=== PATIENT | female | born 1995 | race Two or more races ===

== ENCOUNTER 2019-01-03 10:53 | Inpatient (IN) ==
[2019-01-03 12:15] LABS: Baso % (Auto) 0.2 % (0.0-2.0); Eos % (Auto) 0.5 % (0.0-4.0); Hematocrit 37.6 % (35.0-46.0); Hemoglobin 12.7 gm/dL (11.6-15.3); Lymph # (Auto) 1.7 th/mm3 (1.0-4.8); Lymph % (Auto) 15.8 % (9.0-44.0); Mean Corpuscular HGB Conc 33.9 % (32.0-36.0); Mean Corpuscular Hemoglobin 30.1 pg (27.0-34.0); Mean Corpuscular Volume 88.9 fL (80.0-100.0); Mean Platelet Volume 8.5 fL (7.0-11.0); Mono # (Auto) 0.6 th/mm3 (0.0-0.9); Mono % (Auto) 6.2 % (0.0-8.0); Neut # (Auto) 8.1 th/mm3 (1.8-7.7); Neut % (Auto) 77.3 % (16.0-70.0); Platelet Count 138 th/mm3 (150-450); Red Blood Count 4.23 mil/mm3 (4.00-5.30); Red Cell Distribution Width 13.7 % (11.6-17.2); White Blood Count 10.5 th/mm3 (4.0-11.0)
[2019-01-03 12:34] LABS: Bacteria,Urine Occasional /hpf; Bilirubin,Urine Negative (Negative); Clarity,Urine Hazy (Clear); Color,Urine Yellow (Yellw/Straw); Glucose,Urine (UA) Negative (Negative); Leukocyte Esterase,Urine Trace (Negative); Mucus,Urine Few /lpf (Occasional); Nitrite,Urine Negative (Negative); Specific Gravity,Urine 1.016 (1.002-1.035); Squamous Epithelial Cell,Urine 1 /hpf (0-5)
[2019-01-03] MEDS ORDERED: Citric Acid/Sodium Citrate Liq 30 ML UDC PO SCH ×2 (14:00→14:15)
[2019-01-03] MEDS ORDERED: Sodium Chlor 0.9% Inj 500 ML IV.SIG PRN ×2 (14:00→14:01)
[2019-01-03] MEDS ORDERED: Naloxone Inj 0.4 MG/ML Vial IV.PUSH PRN ×3 (14:00→17:42)
[2019-01-03] MEDS ORDERED: Oxytocin 30 Units/500ml Premix 30 UNITS/500 ML BAG IV.SIG ONE ×2 (14:00→14:30)
[2019-01-03] MEDS ORDERED: fentaNYL Citrate Inj 100 MCG/2 ML Ampul IV.PUSH PRN ×4 (14:00→14:01)
[2019-01-03] MEDS ORDERED: Sod Chloride 0.9% Inj 1,000 ML IV.CONT PRN ×2 (14:00→14:01)
--- NOTE | 2019-01-03 14:00 | P.OBLABOR ---
Subjective Interval history: 23 yo shf P0 at 39 1/7 seen in office this am and 5 cm. Incarcerated at the halfway awaiting disposition. PNC with dc and halfway [employer] TECH[employer]IAN thrombocytopenia noted -- mild (epidural not contraindicated) Strip category one 5/75%/posterior EWF 7 pounds pelvis unproven but clinically adequate Objective Vital Signs: Vital Signs - 8 hr 01/03/19 11:30 01/03/19 13:00 Temperature 98.4 F 98.3 F Pulse Rate 94 H 82 Respiratory Rate 20 16 Blood Pressure 103/62 104/54 L Objective: Pelvic Exam: Cervix: [-] Dilatation: [-] Effacement: [-] Station: [-] Presentation: [-] Membranes: [intact or ruptured] Uterine Contractions: [-] FHT's: Category: [-] Baseline: [-] Reactive: [-] Variability: [-] Decels: [-] Assessment and Plan - Diagnosis (1) 39 weeks gestation of Code(s): Z3A.39 - 39 weeks gestation of Status: Acute (2) Active labor at term Status: Acute - Plan augment as indicated epidural prn anticipate
[2019-01-03] MEDS ORDERED: Oxytocin 30 Units/500ml Premix 30 UNITS/500 ML BAG IV.SIG PRN (14:02)
[2019-01-03] MEDS ORDERED: fentaNYL 2MCG-Bupiv 0.125% Epi 150 ML EPIDURAL ONE (14:19)
[2019-01-03] MEDS ORDERED: Lidocaine 2%/Epinephrine 1:200,000 PF 10 ML SDV ONE (14:19)
[2019-01-03] MEDS ORDERED: fentaNYL 2MCG-Bupiv 0.125% Epi 150 ML EPIDURAL PRN (14:50)
[2019-01-03] MEDS ORDERED: fentaNYL Citrate Inj 100 MCG/2 ML Ampul EPIDURAL ONE (14:50)
[2019-01-03] MEDS ORDERED: Diphtheria/Tetanus/Pertussis Vaccine Inj 0.5 ML Syringe IM ONE (16:00)
[2019-01-03] MEDS ORDERED: Measles/Mumps/Rubella Vaccine Inj 0.5 ML Vial SQ ONE (16:00)
--- NOTE | 2019-01-03 17:41 | P.OBDELI ---
Weeks Gestation: 39 Patient Started Active Labor: Yes Medical Induction of Labor: No Artificial Rupture of Membrane: Yes Anesthesia: Epidural Episiotomy: none Vaginal Delivery: Normal Presentation: Occiput anterior Nuchal Cord: None Delayed Cord Clamping (45 sec): Yes Placenta: Spontaneous delivery, Intact, 3 vessel cord Laceration: None Estimated blood loss (mL): 200 Infant: Female Female A Infant Delivery Date: 01/03/19 Delivery Time: 17:41 Weight: 3.4 kg score (1 min): 9 score (5 min): 9
[2019-01-03] MEDS ORDERED: Witch Hazel 50%/Glyderin 12.5% 40 Pad Jar RECTAL PRN (17:42)
[2019-01-03] MEDS ORDERED: Benzocaine 20% Top Spray 60 ML Can TOPICAL PRN (17:42)
[2019-01-03] MEDS ORDERED: Acetaminophen 325 MG Tablet PO PRN (17:42)
[2019-01-03] MEDS ORDERED: Bisacodyl 10 MG Supp RECTAL PRN (17:42)
[2019-01-03] MEDS ORDERED: Oxytocin 30 Units/500ml Premix 30 UNITS/500 ML BAG IV.CONT PRN (17:42)
[2019-01-03] MEDS ORDERED: Zolpidem Tartrate 5 MG Tablet PO PRN (21:00)
[2019-01-04] MEDS: Senna/Docusate Sodium 8.6/50 MG Tablet PO SCH ×3 (00:07→22:31)
--- NOTE | 2019-01-04 10:51 | P.PNOB ---
Subjective Post day: 1 Interval history: PPD#1; doing well, no c/o,minimal bleeding,attempting to breast feed. Objective Vital Signs/I&O: Vital Signs 01/03/19 11:30 01/03/19 13:00 01/03/19 14:25 Temperature 98.4 F 98.3 F Pulse Rate 94 H 82 81 Respiratory Rate 20 16 Blood Pressure 103/62 104/54 L 98/60 L 01/03/19 14:30 01/03/19 14:40 01/03/19 15:10 Temperature Pulse Rate 91 H 86 75 Respiratory Rate Blood Pressure 111/64 104/72 96/53 L 01/03/19 15:30 01/03/19 15:34 01/03/19 15:40 Temperature Pulse Rate 75 78 Respiratory Rate 18 Blood Pressure 104/62 01/03/19 16:10 01/03/19 16:40 01/03/19 17:05 Temperature 98.7 F Pulse Rate 88 89 78 Respiratory Rate 18 Blood Pressure 108/66 106/67 104/57 L 01/03/19 17:43 01/03/19 17:49 01/03/19 18:00 Temperature 98.6 F Pulse Rate 81 85 Respiratory Rate 20 18 Blood Pressure 113/72 113/72 125/65 01/03/19 18:15 01/03/19 18:30 01/03/19 18:45 Temperature Pulse Rate 80 77 69 Respiratory Rate 17 16 Blood Pressure 111/74 106/63 112/71 01/03/19 19:00 01/03/19 19:51 01/03/19 20:40 Temperature 97.9 F Pulse Rate 74 78 Respiratory Rate 18 18 Blood Pressure 105/67 01/04/19 08:00 Temperature 98.1 F Pulse Rate 85 Respiratory Rate 16 Blood Pressure 94/53 L Intake & Output 01/03/19 01/04/19 01/04/19 18:59 06:59 18:59 Weight 68 kg Other: Weight On Admission 68 kg Result Diagrams: 01/03/19 11:45 Objective Remarks: GENERAL: Well-nourished, well-developed patient. CARDIOVASCULAR: Regular rate and rhythm without murmurs, gallops, or rubs. RESPIRATORY: Breath sounds equal bilaterally. No accessory muscle use. ABDOMEN/GI: Abdomen soft, non-tender. Fundus: Firm, non-tender at umbilicus. GENITOURINARY: Light to moderate bleeding. EXTREMITIES: No cyanosis or edema, non-tender, without signs of DVT. Medications and IVs: Active Medications Acetaminophen (Tylenol) 650 mg PO Q4H PRN PRN Reason: PAIN SCALE 1 TO 2 Al Hydroxide/Mg Hydroxide (Milk Of Magnesia Liq) 30 ml PO Q12H PRN PRN Reason: Mild Constipation Benzocaine (Americaine 20% [place]) 1 spray TOPICAL Q4H PRN PRN Reason: For Perineum Discomfort Last Admin: 01/04/19 02:23 Dose: 1 spray Bisacodyl (Dulcolax Supp) 10 mg RECTAL DAILY PRN PRN Reason: SEVERE CONSITIPATION Citric Acid/Sodium Citrate (Sodium Citrate/Citric Acid Liq) 30 ml PO [facility] Stop: 01/07/19 14:14 Ephedrine Sulfate (Ephedrine/Ns Syringe) 10 mg IV.PUSH UNSCH PRN PRN Reason: SEE LABEL COMMENTS Stop: 01/04/19 14:50 Fentanyl Citrate (Fentanyl Inj) 50 mcg IV.PUSH Q1H PRN PRN Reason: Pain Scale 3 - 5 Fentanyl Citrate (Fentanyl Inj) 100 mcg IV.PUSH Q1H PRN PRN Reason: PAIN SCALE 6 TO 10 Lactated Ringer's (Lr 1000 Ml Inj) 1,000 mls @ 3,000 mls/hr IV.SIG UNSCH PRN PRN Reason: compromise or epidural Last Admin: 01/03/19 14:40 Dose: 3,000 mls/hr Sodium Chloride (Ns Inj) 500 mls @ 1,000 mls/hr IV.SIG UNSCH PRN PRN Reason: SEE LABEL COMMENTS Sodium Chloride (Ns Inj) 1,000 mls @ 100 mls/hr IV.CONT .Q10H PRN PRN Reason: SEE LABEL COMMENTS Lactated Ringer's (Lr 1000 Ml Inj) 1,000 mls @ 125 mls/hr IV.CONT .Q8H [facility] Last Admin: 01/04/19 07:39 Dose: Not Given Oxytocin (Pitocin 30 Units/Ns 500 Ml Premix) 30 units in 500 mls @ 2 mls/hr IV.SIG TITRATE PRN; Protocol PRN Reason: For induction of labor Last Admin: 01/03/19 15:49 Dose: 2 milliunit/min, 2 mls/hr Fentanyl/Bupivacaine/Sodium Chlor (Fentanyl 2 Mcg-Bupiv 0.125% Epi) 150 mls @ 22 mls/hr EPIDURAL PRN PRN PRN Reason: for Labor Pain Last Admin: 01/03/19 14:40 Dose: 22 mls/hr Oxytocin (Pitocin 30 Units/Ns 500 Ml Premix) 30 units in 500 mls @ 100 mls/hr IV.CONT UNSCH PRN PRN Reason: Heavy bleeding Ibuprofen (Motrin) 800 mg PO Q8H PRN PRN Reason: For Cramping Last Admin: 01/04/19 02:38 Dose: 800 mg Lactulose (Lactulose Liq) 30 ml PO DAILY PRN PRN Reason: SEVERE CONSITIPATION Lidocaine HCl (Xylocaine 1% Inj) 0.1 ml I-DERMAL PRN PRN PRN Reason: For IV start Stop: 01/06/19 14:00 Lidocaine HCl (Xylocaine 1% Inj) 10 ml INFILTRATN PRN PRN PRN Reason: For episiotomy repair Stop: 01/05/19 14:00 Mineral Oil (Muri-Lube Oil) 10 ml TOPICAL PRN PRN PRN Reason: PRN perineal massage Miscellaneous Information (Misc Information) 1 each OTHER UNSCH PRN PRN Reason: SEE LABEL COMMENTS Stop: 01/04/19 14:50 Miscellaneous Information (Misc Information) 1 each OTHER UNSCH PRN PRN Reason: SEE LABEL COMMENTS Stop: 01/04/19 14:50 Naloxone HCl (Narcan Inj) 0.1 mg IV.PUSH Q2M PRN PRN Reason: for opiate reversal Ondansetron HCl (Zofran Odt) 4 mg PO Q6H PRN PRN Reason: NAUSEA OR VOMITING Senna/Docusate Sodium (Maria C-Colace) 1 tab PO BID [facility] Last Admin: 01/04/19 00:07 Dose: Not Given Sennosides (Senokot) 17.2 mg PO Q12H PRN PRN Reason: Moderate Constipation Sodium Chloride (Ns Flush) 2 ml IV.FLUSH BID [facility] Last Admin: 01/04/19 00:07 Dose: Not Given Sodium Chloride (Ns Flush) 2 ml IV.FLUSH PRN PRN PRN Reason: FLUSH AFTER USING IV ACCESS Witch Mary/Glycerin (Tucks Pads) 1 applicatio RECTAL QID PRN PRN Reason: HEMORRHOIDS Last Admin: 01/04/19 02:23 Dose: 1 applicatio Zolpidem Tartrate (Ambien) 5 mg PO HS PRN PRN Reason: SLEEP Assessment and Plan - Diagnosis (1) 39 weeks gestation of Code(s): Z3A.39 - 39 weeks gestation of Status: Acute (2) Active labor at term Status: Acute - Plan PPD#1; stable, doing well, expected to stay as inpatient until tomorrow morning. Patient to return to group home upon discharge Discharge Planning: Plan discharge for AM, 01/05/19
[2019-01-04 22:33] VITALS: RESP 18; O2SAT 99
--- NOTE | 2019-01-05 08:27 | P.PNOB ---
Subjective Post day: 2 Interval history: No complaints, min lochia. Objective Vital Signs/I&O: Vital Signs 01/04/19 20:50 Temperature 98.4 F Pulse Rate 74 Respiratory Rate 18 Blood Pressure 109/61 Pulse Oximetry 99 Result Diagrams: 01/03/19 11:45 Objective Remarks: GENERAL: Well-nourished, well-developed patient. CARDIOVASCULAR: Regular rate and rhythm without murmurs, gallops, or rubs. RESPIRATORY: Breath sounds equal bilaterally. No accessory muscle use. ABDOMEN/GI: Abdomen soft, non-tender. Fundus: Firm, non-tender at umbilicus. GENITOURINARY: Light to moderate bleeding. EXTREMITIES: No cyanosis or edema, non-tender, without signs of DVT. Exam performed by Dr. Soriano Medications and IVs: Active Medications Acetaminophen (Tylenol) 650 mg PO Q4H PRN PRN Reason: PAIN SCALE 1 TO 2 Al Hydroxide/Mg Hydroxide (Milk Of Magnesia Liq) 30 ml PO Q12H PRN PRN Reason: Mild Constipation Benzocaine (Americaine 20% Top [place]) 1 spray TOPICAL Q4H PRN PRN Reason: For Perineum Discomfort Last Admin: 01/04/19 02:23 Dose: 1 spray Bisacodyl (Dulcolax Supp) 10 mg RECTAL DAILY PRN PRN Reason: SEVERE CONSITIPATION Citric Acid/Sodium Citrate (Sodium Citrate/Citric Acid Liq) 30 ml PO [employer]FET[employer] AIDE [facility] Stop: 01/07/19 14:14 Fentanyl Citrate (Fentanyl Inj) 50 mcg IV.PUSH Q1H PRN PRN Reason: Pain Scale 3 - 5 Fentanyl Citrate (Fentanyl Inj) 100 mcg IV.PUSH Q1H PRN PRN Reason: PAIN SCALE 6 TO 10 Lactated Ringer's (Lr 1000 Ml Inj) 1,000 mls @ 3,000 mls/hr IV.SIG UNSCH PRN PRN Reason: compromise or epidural Last Admin: 01/03/19 14:40 Dose: 3,000 mls/hr Sodium Chloride (Ns Inj) 500 mls @ 1,000 mls/hr IV.SIG UNSCH PRN PRN Reason: SEE LABEL COMMENTS Sodium Chloride (Ns Inj) 1,000 mls @ 100 mls/hr IV.CONT .Q10H PRN PRN Reason: SEE LABEL COMMENTS Lactated Ringer's (Lr 1000 Ml Inj) 1,000 mls @ 125 mls/hr IV.CONT .Q8H [facility] Last Admin: 01/05/19 07:26 Dose: Not Given Oxytocin (Pitocin 30 Units/Ns 500 Ml Premix) 30 units in 500 mls @ 2 mls/hr IV.SIG TITRATE PRN; Protocol PRN Reason: For induction of labor Last Admin: 01/03/19 15:49 Dose: 2 milliunit/min, 2 mls/hr Fentanyl/Bupivacaine/Sodium Chlor (Fentanyl 2 Mcg-Bupiv 0.125% Epi) 150 mls @ 22 mls/hr EPIDURAL PRN PRN PRN Reason: for Labor Pain Last Admin: 01/03/19 14:40 Dose: 22 mls/hr Oxytocin (Pitocin 30 Units/Ns 500 Ml Premix) 30 units in 500 mls @ 100 mls/hr IV.CONT UNSCH PRN PRN Reason: Heavy bleeding Ibuprofen (Motrin) 800 mg PO Q8H PRN PRN Reason: For Cramping Last Admin: 01/05/19 03:29 Dose: 800 mg Lactulose (Lactulose Liq) 30 ml PO DAILY PRN PRN Reason: SEVERE CONSITIPATION Lidocaine HCl (Xylocaine 1% Inj) 0.1 ml I-DERMAL PRN PRN PRN Reason: For IV start Stop: 01/06/19 14:00 Lidocaine HCl (Xylocaine 1% Inj) 10 ml INFILTRATN PRN PRN PRN Reason: For episiotomy repair Stop: 01/05/19 14:00 Mineral Oil (Muri-Lube Oil) 10 ml TOPICAL PRN PRN PRN Reason: PRN perineal massage Naloxone HCl (Narcan Inj) 0.1 mg IV.PUSH Q2M PRN PRN Reason: for opiate reversal Ondansetron HCl (Zofran Odt) 4 mg PO Q6H PRN PRN Reason: NAUSEA OR VOMITING Senna/Docusate Sodium (Maria C-Colace) 1 tab PO BID [facility] Last Admin: 01/04/19 22:31 Dose: Not Given Sennosides (Senokot) 17.2 mg PO Q12H PRN PRN Reason: Moderate Constipation Sodium Chloride (Ns Flush) 2 ml IV.FLUSH BID [facility] Last Admin: 01/04/19 22:31 Dose: Not Given Sodium Chloride (Ns Flush) 2 ml IV.FLUSH PRN PRN PRN Reason: FLUSH AFTER USING IV ACCESS Witch Mary/Glycerin (Tucks Pads) 1 applicatio RECTAL QID PRN PRN Reason: HEMORRHOIDS Last Admin: 01/04/19 02:23 Dose: 1 applicatio Zolpidem Tartrate (Ambien) 5 mg PO HS PRN PRN Reason: SLEEP Assessment and Plan - Diagnosis (1) 39 weeks gestation of Code(s): Z3A.39 - 39 weeks gestation of Status: Acute (2) Active labor at term Status: Acute - Plan PPD#2; stable, doing well, Infant expected to stay as inpatient until picks up baby. Patient to return to assisted upon discharge f/u in office in 2-4 wk, needs LARC Discharge Planning: Plan discharge for AM, 01/05/19
[2019-01-05 09:37] VITALS: BP 138/78; PULSE 90; TEMP 98.1
== END 2019-01-05 15:16 | DRG 807 ==
LOC: H2E 10:53 → H1EA 19:51
PROVIDERS: ADMIT Obstetrics & Gynecology; ATTEND Obstetrics & Gynecology
CPT/HCPCS: 59025; 81001; 85025; 86850; 86900; 86901; J2590; J7120